=== PATIENT | female | born 1980 | race Caucasian/White ===

== ENCOUNTER 2017-05-25 13:03 | Emergency (ER) | payer MEDICAID ==
[~2017-05-25] VITALS: Ht 167.6 cm; Wt 78.4 kg
[~2017-05-25 13:03] MED LIST: HYDR-3972 PO; NO HOME MEDS
[2017-05-25 13:33] VITALS: BP 144/105
[2017-05-25] MEDS ORDERED: TRAM50TA2 PO (14:20)
[2017-05-25] MEDS ORDERED: PENI250T2 PO (14:20)
[2017-05-25] MEDS ORDERED: NAPR-56 PO (14:20)
== END 2017-05-25 14:30 | disposition home or self-care (01) ==
LOC: ER 13:03
DX: K08.89 Other specified disorders of teeth and supporting structures (principal); F17.200 Nicotine dependence, unspecified, uncomplicated; F12.10 Cannabis abuse, uncomplicated; Z88.6 Allergy status to analgesic agent; Z88.5 Allergy status to narcotic agent; Z90.49 Acquired absence of other specified parts of digestive tract
CPT/HCPCS: 99283

== ENCOUNTER 2017-07-05 02:49 | Emergency (ER) | payer MEDICAID ==
[~2017-07-05] VITALS: Ht 167.6 cm; Wt 85.9 kg
[2017-07-05] MEDS ORDERED: normal saline 1000ml 1,000 ML IV ONE (03:15)
[2017-07-05 03:19] VITALS: BP 133/83
[2017-07-05 03:25] LABS: BASOPHILS % (AUTO) 0.1 % (0-1); EOSINOPHILS # (AUTO) 0.2 X10'3 (0-0.9); EOSINOPHILS % (AUTO) 1.3 % (0-6); HEMATOCRIT 39.3 % (35.0-45.0); HEMOGLOBIN 13.6 g/dl (12.0-16.0); LYMPHOCYTES # (AUTO) 1.8 X10'3 (1.1-4.8); LYMPHOCYTES % (AUTO) 9.9 % (21-51); MEAN CORPUSCULAR HEMOGLOBIN 30.4 PG (27.0-31.0); MEAN CORPUSCULAR HGB CONC 34.6 % (33.0-36.5); MEAN CORPUSCULAR VOLUME 87.8 FL (78-98); MONOCYTES # (AUTO) 0.8 X10'3 (0-0.9); MONOCYTES % (AUTO) 4.2 % (2-12); NEUTROPHILS # (AUTO) 15.7 X10'3 (1.8-7.7); NEUTROPHILS % (AUTO) 84.5 % (42-75); PLATELET COUNT 204 X10'3 (140-440); RED BLOOD COUNT 4.47 X10'6 (4.20-5.60); RED CELL DISTRIBUTION WIDTH 14.1 % (11.5-14.5); WHITE BLOOD COUNT 18.6 X10'3 (4.5-11.0)
[2017-07-05 03:28] LABS: URINE HCG NEGATIVE (NEG)
[2017-07-05] MEDS ORDERED: ondansetron/PF 4mg/2ml inj IV ONE (03:30)
[2017-07-05] MEDS ORDERED: morphine 4 MG/ML inj SYRINge IV ONE (03:30)
[2017-07-05 03:35] LABS: PROTHROMBIN TIME 10.6 SECONDS (9.0-12.0)
[2017-07-05 03:41] LABS: ALANINE AMINOTRANSFERASE 27 U/L (12-78); ALBUMIN 3.6 G/DL (3.4-5.0); ALBUMIN/GLOBULIN RATIO 1.1 (1.1-1.5); ALKALINE PHOSPHATASE 49 IU/L (46-116); ANION GAP 11 (8-16); ASPARTATE AMINO TRANSFERASE 16 U/L (10-37); BILIRUBIN,TOTAL 0.4 MG/DL (0.1-1.0); BLOOD UREA NITROGEN 8 MG/DL (7-18); BUN/CREATININE RATIO 9.4 (6.6-38.0); CALCIUM 8.5 MG/DL (8.5-10.1); CHLORIDE 102 MMOL/L (99-107); CREATININE 0.85 MG/DL (0.40-0.90); GLUCOSE 127 MG/DL (70-104); LIPASE 96 U/L (73-393); POTASSIUM 3.9 MMOL/L (3.5-5.1); SODIUM 136 MMOL/L (135-145); TOTAL CARBON DIOXIDE 22.8 MMOL/L (24-32); TOTAL PROTEIN 6.9 G/DL (6.4-8.2); eGFR 76 ML/MIN
[2017-07-05 03:58] LABS: CLARITY,URINE CLOUDY (Clear); COLOR,URINE YELLOW (Yellow); GLUCOSE, URINE NEGATIVE (Neg); KETONES,URINE NEGATIVE (Neg); LEUKOCYTE ESTERASE ,URINE MODERATE (Neg); NITRITES, URINE NEGATIVE (Neg); OCCULT BLOOD,URINE LARGE (Neg); PROTEIN,URINE 100 mg/dl (Neg); UROBILINOGEN,URINE 0.2 E.U/dL (0.2-1.0)
[2017-07-05 03:59] LABS: UA COLLECTION TYPE CLN CATCH MIDSTREAM
[2017-07-05 04:06] LABS: BACTERIA,URINE 2+ /HPF (Neg); RBC,URINE 50-100 /HPF (0-2); WBC,URINE TNTC /HPF (0-4)
[2017-07-05 04:07] LABS: MUCUS STRANDS NONE SEEN /LPF (Neg); SQUAMOUS EPITHELIAL CELL,UR FEW /LPF (FEW); WBC CLUMPS,URINE FEW /HPF (NEGATIVE)
[2017-07-05 04:15] LABS: PLATELET ESTIMATE NORMAL; TOTAL CELLS COUNTED 100
[2017-07-05] MEDS ORDERED: CefTRIAXone/D5W-Rocephin 1gm 50 ML IV ONE (04:15)
[2017-07-05] MEDS ORDERED: ONDA4TAB6 PO (04:26)
[2017-07-05] MEDS ORDERED: LEVO750T21 PO (04:26)
== END 2017-07-05 04:50 | disposition home or self-care (01) ==
LOC: ER 02:49
DX: N12 Tubulo-interstitial nephritis, not specified as acute or chronic (principal); F12.10 Cannabis abuse, uncomplicated; Z90.49 Acquired absence of other specified parts of digestive tract; Z98.890 Other specified postprocedural states; Z88.6 Allergy status to analgesic agent; Z88.5 Allergy status to narcotic agent; Z79.899 Other long term (current) drug therapy
CPT/HCPCS: 36415; 74176; 80053; 81001; 81025; 83690; 85025; 85610; 87077; 87088; 87186; 96365; 96375; 99285; J0696; J2270; J2405

== ENCOUNTER 2018-10-03 22:51 | Emergency (ER) | payer MEDICAID, OTHER ==
[~2018-10-03] VITALS: Ht 167.6 cm; Wt 72.7 kg
[~2018-10-03 22:51] MED LIST changes: +ONDA4TAB6 PO
[2018-10-03] MEDS ORDERED: HYDR-3965 PO (23:02)
[2018-10-03] MEDS ORDERED: ONDA4TAB6 PO (23:02)
[2018-10-03] MEDS ORDERED: ibuprofen tablet 400 MG TABLET PO ONE (23:05)
[2018-10-03] MEDS ORDERED: AMOX500C2 PO (23:24)
[2018-10-03] MEDS ORDERED: METH4TAB3 PO (23:24)
[2018-10-03 23:36] VITALS: BP 162/95
== END 2018-10-03 23:38 | disposition home or self-care (01) ==
LOC: ER 22:52
DX: K02.9 Dental caries, unspecified (principal); K04.7 Periapical abscess without sinus; K03.81 Cracked tooth; F41.9 Anxiety disorder, unspecified; F12.90 Cannabis use, unspecified, uncomplicated; Z90.49 Acquired absence of other specified parts of digestive tract; Z98.890 Other specified postprocedural states; Z88.6 Allergy status to analgesic agent; Z88.5 Allergy status to narcotic agent; Z79.2 Long term (current) use of antibiotics
CPT/HCPCS: 99283